=== PATIENT | female | born 1990 | race Caucasian/White ===

== ENCOUNTER 2017-12-21 09:08 | Emergency (ER) | payer MEDICAID, OTHER ==
[~2017-12-21] VITALS: Ht 172.7 cm; Wt 65.9 kg
[2017-12-21 09:22] VITALS: BP 118/39
[2017-12-21] MEDS ORDERED: PLEASE ENTER HEIGHT AND WEIGHT MC SCH (09:30)
[2017-12-21] MEDS ORDERED: ONDANSETRON ODT 4 MG PO ONE (09:30)
[2017-12-21] MEDS ORDERED: PLEASE ENTER ALLERGIES MC SCH (09:30)
[2017-12-21] MEDS ORDERED: FENTANYL PF 100 MCG/2ML IVPush ONE (09:30)
[2017-12-21] MEDS ORDERED: ONDANSETRON ODT 4 MG ONE (09:42)
[2017-12-21] MEDS ORDERED: FENTANYL PF 100 MCG/2ML ONE (09:42)
[2017-12-21] MEDS ORDERED: ICN FENTANYL 4MCG/ML IV IVPush ONE (10:00)
== END 2017-12-21 10:30 | disposition home or self-care (01) ==
LOC: ED 10:10
DX: O26.891 Other specified pregnancy related conditions, first trimester (principal); Z3A.01 Less than 8 weeks gestation of pregnancy; S83.014A Lateral dislocation of right patella, initial encounter; X50.1XXA Overexertion from prolonged static or awkward postures, initial encounter; Y93.89 Activity, other specified; Y92.099 Unspecified place in other non-institutional residence as the place of occurrence of the external cause; Y99.8 Other external cause status; Z87.891 Personal history of nicotine dependence
CPT/HCPCS: 27560; 96374; 99284; J3010; Q0162

== ENCOUNTER → 2020-03-15 | Outpatient (CLI) | payer MEDICAID | END | disposition home or self-care (01) | LOC: STAR 16:04 | PROVIDERS: ATTEND Family Medicine | DX: Z01.818 Encounter for other preprocedural examination (principal); Z11.59 Encounter for screening for other viral diseases | CPT/HCPCS: 36415; 87635 ==

== ENCOUNTER 2020-03-19 09:12 | Day surgery (SDC) | payer MEDICAID ==
[~2020-03-19] VITALS: Ht 172.7 cm; Wt 61.8 kg
[~2020-03-19 09:12] MED LIST: BUPIVACAINE/PF-EPI 0.5% 1:200K ONE
[2020-03-19 09:39] VITALS: BP 115/80
[2020-03-19] MEDS ORDERED: BUPR200T2 PO (09:39)
[2020-03-19] MEDS ORDERED: medical marijuana PO (09:39)
[2020-03-19] MEDS ORDERED: CHLORHEXIDINE 15 ML UDC ONE (09:50)
[2020-03-19] MEDS ORDERED: CHLORHEXIDINE 15 ML UDC MM ONE (10:00)
[2020-03-19] MEDS ORDERED: LACTATED RINGERS 1,000 ML IV SCH (10:01)
[2020-03-19 10:25] LABS: HCG UR SG 1.014 (1.003-1.030)
[2020-03-19] MEDS ORDERED: FENTANYL PF 100 MCG/2ML ONE (11:07)
[2020-03-19] MEDS ORDERED: MIDAZOLAM 1 MG/ML, 2ML ONE (11:08)
[2020-03-19] MEDS ORDERED: LORazepam 2 MG/ML, 1ML IVPush PRN (12:00)
[2020-03-19] MEDS ORDERED: OXYcodone 5 MG/5 ML ORAL.SOL UDC PO PRN (12:00)
[2020-03-19] MEDS ORDERED: PROMETHAZINE 25 MG/ML, 1ML IVPush PRN (12:00)
[2020-03-19] MEDS ORDERED: hydrALAzine 20 MG/ML, 1ML IV PRN (12:00)
[2020-03-19] MEDS ORDERED: MEPERIDINE/PF 25MG/0.5ML IVPush PRN (12:00)
[2020-03-19] MEDS ORDERED: FENTANYL PF 100 MCG/2ML IV PRN (12:00)
[2020-03-19] MEDS ORDERED: ALBUTEROL SULFATE 2.5 MG/3 ML NPPB PRN (12:00)
[2020-03-19] MEDS ORDERED: LABETALOL 5MG/ML, 20ML IV PRN (12:00)
[2020-03-19] MEDS ORDERED: ACETAMINOPHEN 325 MG TABLET PO PRN (12:00)
[2020-03-19] MEDS ORDERED: HYDROmorphone 1 MG/ML, 1ML INJ IVPush PRN (12:00)
[2020-03-19] MEDS ORDERED: BUPIVACAINE/PF 0.5% ONE (12:20)
[2020-03-19] MEDS ORDERED: CEFAZOLIN 1,000 MG ONE (12:20)
[2020-03-19] MEDS ORDERED: DEXAMETHASONE 4 MG/ML, 1ML ONE (12:20)
[2020-03-19] MEDS ORDERED: PROPOFOL 10 MG/ML, 20ML ONE (12:20)
[2020-03-19] MEDS ORDERED: ONDANSETRON 2MG/ML, 2ML ONE (12:20)
[2020-03-19] MEDS ORDERED: LIDOCAINE-MPF 2% ,5ML ONE (12:21)
== END 2020-03-19 14:00 | disposition home or self-care (01) ==
LOC: OUT 09:12
PROVIDERS: ATTEND Podiatrist Foot & Ankle Surgery
DX: M21.611 Bunion of right foot (principal); G89.18 Other acute postprocedural pain; M35.7 Hypermobility syndrome; Z79.899 Other long term (current) drug therapy; Z87.891 Personal history of nicotine dependence
CPT/HCPCS: 28297; 64445; 64447; 81025; C1713; J0690; J1100; J2250; J2405; J2704; J3010; J7120